=== PATIENT | male | born 1995 | race American Indian/Alaskan Native ===

== ENCOUNTER 2018-12-12 16:13 | Emergency (ER) | payer SELFPAY ==
[2018-12-12 17:10] VITALS: BMI 25.0
--- NOTE | 2018-12-12 17:47 | ED PDOC ---
Arrival/HPI - General Chief Complaint: Upper Extremity Problem/Injury Time Seen by Provider: 12/12/18 16:57 Historian: Patient - History of Present Illness Narrative History of Present Illness (Text): 12/12/18 17:44 23yo male with no pmhx who present with complaint of right elbow pain x 3days. Notes that pain started while lifting weight in a gym. States he head a poping sound while lifting the weight. Did not take any medication. Notes pain with full extension of the right arm and with pronation/supination of the arm. Denies focal weakness, any other complaint. Past Medical History - Provider Review Nursing Documentation Reviewed: Yes - Psychiatric Hx Substance Use: Yes Family/Social History - Physician Review Nursing Documentation Reviewed: Yes Family/Social History: Unknown Family HX Smoking Status: Never Smoked Hx Alcohol Use: No Hx Substance Use: Yes Substance used: marijuana Allergies/Home Meds Allergies/Adverse Reactions: Allergies No Known Allergies Allergy (Verified 12/12/18 17:10) Review of Systems - Physician Review All systems were reviewed & negative as marked: Yes - Review of Systems Constitutional: Normal Eyes: Normal ENT: Normal Respiratory: Normal Cardiovascular: Normal Gastrointestinal: Normal Genitourinary Male: Normal Musculoskeletal: Arthralgias (Right elbow pain) Skin: Normal Neurological: Normal Endocrine: Normal Hemo/Lymphatic: Normal Psychiatric: Normal Physical Exam Vital Signs Reviewed: Yes Vital Signs Temp Pulse Resp BP Pulse Ox 12/12/18 17:06 98.5 F 77 16 123/80 99 Temperature: Afebrile Blood Pressure: Normal Pulse: Regular Respiratory Rate: Normal Appearance: Positive for: Well-Appearing, Non-Toxic, Comfortable Pain Distress: None Mental Status: Positive for: Alert and Oriented X 3 - Systems Exam Head: Present: Atraumatic, Normocephalic Pupils: Present: PERRL Extroacular Muscles: Present: EOMI Conjunctiva: Present: Normal Mouth: Present: Moist Mucous Membranes Neck: Present: Normal Range of Motion Respiratory/Chest: Present: Clear to Auscultation, Good Air Exchange. No: R espiratory Distress, Accessory Muscle Use Cardiovascular: Present: Regular Rate and Rhythm, Normal S1, S2. No: Murmurs Abdomen: No: Tenderness, Distention, Peritoneal Signs Back: Present: Normal Inspection Upper Extremity: Present: Normal Inspection, NORMAL PULSES, Tenderness (Right elbow), Neurovascularly Intact. No: Cyanosis, Edema, Normal ROM (Limited on full extension secondary to pain), Swelling, Temperature Abnormalties, Deformity Lower Extremity: Present: Normal Inspection. No: Edema Neurological: Present: GCS=15, CN II-XII Intact, Speech Normal Skin: Present: Warm, Dry, Normal Color. No: Rashes Psychiatric: Present: Alert, Oriented x 3, Normal Insight, Normal Concentration Medical Decision Making ED Course and Treatment: 12/12/18 18:51 PT in ED for stated history. He was NVI. right elbow xray - No acute fracture/dislocation Result was DW the pt Arm sling was placed and pt was DC home with NSAID for MS/tendinitis. Referred to ortho - RAD Interpretation Radiology Orders: 12/12/18 17:10 ELBOW RIGHT 3 VIEWS ROUTINE [RAD] Stat - Medication Orders Current Medication Orders: Discontinued Medications Ibuprofen (Motrin Tab) 600 mg PO STAT STA Stop: 12/12/18 17:12 Disposition/Present on Arrival - Present on Arrival Any Indicators Present on Arrival: No History of DVT/PE: No History of Uncontrolled Diabetes: No Urinary Catheter: No History of Decub. Ulcer: No History Surgical Site Infection Following: None - Disposition Have Diagnosis and Disposition been Completed?: Yes Diagnosis: Tendinitis Disposition: HOME/ ROUTINE Disposition Time: 18:25 Patient Plan: Discharge Patient Problems: Current Active Problems Problem Status Onset Tendinitis Acute Condition: STABLE Discharge Instructions (ExitCare): Tendonitis Additional Instructions: Follow up with your Doctor/orthopedist Return to ED for any new or worsening symptoms Prescriptions: Ibuprofen [Motrin Tab] 600 mg PO Q6 #15 tab Referrals: PCP,NO [Primary Care Provider] - Follow up with primary Isidro Whittaker III, MD [Medical Doctor] - Follow up with primary Forms: [facility] (Sinhala)
[2018-12-12 19:22] VITALS: BP 123/66; PULSE 72; RESP 18; TEMP 98.2; O2SAT 98
--- NOTE | 2018-12-13 07:59 | RAD ---
Date of service: 12/12/2018 PROCEDURE: Radiographs of the right elbow. HISTORY: right elbow pain COMPARISON: No prior. FINDINGS: BONES: Normal. No fracture. JOINTS: Normal. No osteoarthritis. SOFT TISSUES: Normal. JOINT EFFUSION: None. OTHER FINDINGS: None. IMPRESSION: No evidence of acute fracture.
== END 2018-12-12 19:22 | disposition home or self-care (01) ==
LOC: MERGE 16:13 → ED 16:13
DX: M77.9 Enthesopathy, unspecified (principal)